=== PATIENT | male | born 1990 | race American Indian/Alaskan Native ===

== ENCOUNTER 2020-07-13 17:59 | Emergency (ER) | payer OTHER ==
[2020-07-13 19:13] VITALS: BP 158/107
== END 2020-07-13 21:55 | disposition home or self-care (01) ==
LOC: ED 17:59
DX: S29.012A Strain of muscle and tendon of back wall of thorax, initial encounter (principal); G44.319 Acute post-traumatic headache, not intractable; Z87.891 Personal history of nicotine dependence; Z79.1 Long term (current) use of non-steroidal anti-inflammatories (NSAID); Z79.2 Long term (current) use of antibiotics; Z79.899 Other long term (current) drug therapy; V49.49XA Driver injured in collision with other motor vehicles in traffic accident, initial encounter; Y93.89 Activity, other specified; Y92.410 Unspecified street and highway as the place of occurrence of the external cause; Y99.8 Other external cause status
CPT/HCPCS: 96372; 99282; J1885